=== PATIENT | female | born 1985 ===

== ENCOUNTER 2021-03-02 11:00 | Outpatient (RCR) | payer MEDICAID, SELFPAY | END 2021-03-11 13:19 | disposition home or self-care (01) | LOC: HO.PT 11:00 | PROVIDERS: PCP Family Medicine; Visit Provider Family Medicine | DX: M54.9 Dorsalgia, unspecified (principal) | CPT/HCPCS: 97014; 97110; 97162 ==

== ENCOUNTER 2021-11-24 12:46 | Emergency (ER) | payer MEDICAID, SELFPAY ==
--- NOTE | ~2021-11-24 | XR_ITS ---
EXAMINATION: XR CHEST CLINICAL INFORMATION: Prominent cardiac silhouette and PA COMPARISON: None TECHNIQUE: Lateral view of the chest was obtained. FINDINGS: Heart size probably within normal limits. No pleural effusions. Osseous structures intact. XR/XR chest 1V IMPRESSION: Heart size probably within normal limits.
--- NOTE | ~2021-11-24 | XR_ITS ---
EXAMINATION: XR CHEST CLINICAL INFORMATION: Shortness of breath COMPARISON: None TECHNIQUE: Frontal view of the chest was obtained. FINDINGS: There is no convincing evidence for failure or infiltrate. Lung carter are grossly clear. Cardiac silhouette is prominent as this film is labeled PA study. Correlation recommended. There is no effusion. The hilar regions do not appear pathologically enlarged. XR/XR chest 1V IMPRESSION: Prominent cardiac silhouette on a film which is labeled PA. No failure or infiltrate. No effusion
[2021-11-24 13:08] VITALS: BP 136/83; PULSE 84; RESP 18; TEMP 36.9; O2SAT 99; BMI 36.9
--- NOTE | 2021-11-24 15:27 | ECG_ITS ---
Test Reason : SHORTNESS OF BREATH Blood Pressure : / mmHG Vent. Rate : 071 BPM Atrial Rate : 071 BPM P-R Int : 122 ms QRS Dur : 090 ms QT Int : 400 ms P-R-T Axes : 014 050 011 degrees QTc Int : 434 ms Normal sinus rhythm Normal ECG No previous ECGs available Referred By: Lisa Garcia Electronically Signed By:MARIMAR BERRY
--- NOTE | 2021-11-24 16:10 | ED.GENADULT ---
HPI - General Adult General Chief complaint: General Medical Stated complaint: +covid, sob, sent from [facility] Time Seen by Provider: 11/24/21 14:45 Source: patient Mode of arrival: ambulatory History of Present Illness HPI narrative: 36-year-old female with past medical history COVID-19 + yesterday, presenting to ED sent in by PCP for fever, nonproductive cough, chest tightness/discomfort and SOB. Reports chest discomfort with deep breathing & movement, and SOB worse on exertion. Denies fever, chills, abdominal pain, nausea/vomiting, pedal edema, calf tenderness, history of clots, cigarette smoking Onset (ago): day(s) Related Data Previous Rx's Medication Instructions Recorded acetaminophen 500 mg tablet 500 mg PO Q6H PRN fever or pain 11/24/21 (Tylenol Extra Strength) #14 tabs albuterol sulfate 90 mcg/actuation 2 puff inhalation Q4-6H PRN 11/24/21 aerosol inhaler shortness of breath or wheezing #6.7 grams benzonatate 100 mg capsule 100 mg PO TID PRN cough #14 caps 11/24/21 fluticasone propionate 50 2 spray intranasal DAILY #16 grams 11/24/21 mcg/actuation nasal spray,suspension (Flonase Allergy Relief) Allergies Allergy/AdvReac Type Severity Reaction Status Date / Time latex [LATEX] Allergy Intermediate HIVES Unverified 01/18/21 12:35 pineapple [PINEAPPLE] Allergy Intermediate SWELLING Unverified 01/18/21 12:35 LOBSTER Allergy Intermediate SWELLING Uncoded 01/18/21 12:35 Review of Systems Review of Systems: Constitutional: + Fever, + Chills ENT/Mouth: No Ear Pain, No Nasal Congestion, No Sinus Pain, No Hoarseness, No sore throat, No Rhinorrhea, No Swallowing Difficulty Cardiovascular: + Chest Pain, + SOB Respiratory: + Cough, No Sputum, No Wheezing Gastrointestinal: No Nausea, No Vomiting, No Diarrhea, No Constipation, No Abdominal pain Genitourinary: No Dysuria, No Hematuria, No Urinary Incontinence/retention Musculoskeletal: No joint pain, No Myalgias, No Joint Swelling Skin: No Skin Lesions, No rash Neuro: No Weakness, No Numbness, No Paresthesias Yes all other systems are reviewed and are negative Constitutional: Constitutional: Reports as per [facility] Past Medical History Attestation statement: The following information was validated with the patient. Social History Social History (System 01/18/21 @ 12:35 by Tiara Martínez) Advance Directives: No Advance Directives Information Provided: No Physical Exam ED Vital Signs: Vital Signs - 24 hr 11/24/21 13:08 11/24/21 16:24 Temperature 98.4 F Pulse Rate 84 78 Respiratory Rate 18 18 Blood Pressure 136/83 Pulse Oximetry 99 Oxygen Delivery Method Room Air BMI result Body Mass Index 36.9 Const General: cooperative, healthy appearing and no acute distress Orientation/consciousness: patient oriented x3 Limitations: no limitations HENMT Head: Yes normal to inspection and Yes atraumatic Ears: hearing grossly normal bilaterally General nose exam: Normal external nose present Face and sinus: Yes normal facial exam Eyes General: appearance normal, both eyes and all related structures EOM: EOMs intact bilaterally Neck Neck: Yes normal visual inspection and Yes no meningeal signs Chest Chest palpation & inspection: normal inspection of the chest, no crepitus and tenderness (substernal reproducing subjective complaint) Resp Effort & Inspection: normal respiratory effort and no respiratory distress Auscultation: clear to auscultation bilaterally, no crackles, no rales and no rhonchi Cardio Rate: regular rate Heart sounds: S1 normal heart sound present and S2 normal heart sound present GI Inspection: Yes normal to inspection Palpation (GI): Soft to palpation, nontender, no guarding and not rigid Skin Rashes: no rashes Wounds: no wounds Neuro General: patient oriented x3, tone normal and no meningeal signs Gait exam (Neuro): Normal gait present Extrem General: Yes normal to inspection, Yes no pedal edema and Yes no calf tenderness Course Course Course Narrative: XR chest 1V IMPRESSION: Prominent cardiac silhouette on a film which is labeled PA. No failure or infiltrate. No effusion > will obtain lateral view for further evaluation ?XR chest 1V IMPRESSION: Heart size probably within normal limits. -COVID-19 positive -1657--no leukocytosis. D-dimer WNL. Troponin negative, BNP negative, labs otherwise reassuring. Results discussed with patient including worrisome signs and symptoms and strict return precautions, and when to return to the emergency department. They verbalized understanding and feel safe for discharge at this time. Medical Decision Making MDM Narrative Medical decision making narrative: 36-year-old female with past medical history COVID-19 + yesterday, presenting to ED sent in by PCP for fever, nonproductive cough, chest tightness/discomfort and SOB. On exam vital signs stable, NAD, nontoxic appearing, lungs CTA, CP reproducible on exam: No pedal edema or calf tenderness. Concern for symptoms secondary to known COVID-19 vs viral pneumonia vs PE as patient's symptoms are pleuritic. Lower suspicion for DVT/bacterial infection or CHF. r/o ACS Plan: EKG, labs, CXR, COVID-19 testing, albuterol Medical Records Medical records reviewed: Yes I reviewed the patient's medical records. Lab Data Lab results reviewed: Yes I reviewed the patient's lab results. Result diagrams: 11/24/21 16:09 11/24/21 16:09 Labs: Lab Results 11/24/21 11/24/21 11/24/21 Range/Units 16:01 16:08 16:09 WBC 9.1 (4.8-10.8) X10*3/uL RBC 4.33 (4.20-5.50) X10*6/uL Hgb 12.7 (12.0-16.0) g/dl Hct 38.4 (37.0-47.0) % MCV 88.7 (80.0-98.0) fL MCH 29.3 (27.0-33.0) pg MCHC 33.1 (31.0-35.0) g/dl RDW 12.8 (11.0-16.0) % Plt Count TNP MPV Not Reportable Immature Gran % (Auto) 0.6 H (0.0-0.4) % Neut % (Auto) 77.8 H (45-73) % Lymph % (Auto) 13.8 L (20-40) % [place] % (Auto) 6.5 (2-11) % Eos % (Auto) 1.0 (0-4) % Baso % (Auto) 0.3 (0-2) % Lymph # (Auto) 1.3 (1.2-4.9) X10*3/uL [place] # (Auto) 0.6 (0.1-1.2) X10*3/uL Eos # (Auto) 0.1 (0.0-0.4) X10*3/uL Baso # (Auto) 0.0 (0.0-0.2) X10*3/uL Abs Immat Gran (auto) 0.05 H (0.00-0.03) X10*3/uL Absolute Neuts (auto) 7.1 (2.0-8.3) x10*3/uL Absolute Nucleated RBC 0.000 (0.0-0.012) X10*3/uL Nucleated RBC % (auto) 0.0 (0.0-0.2) /100WBC Smear Tech's Comments VERIFIED D-Dimer High Sensitivty NG/ML Sodium (135-145) mmol/L Potassium (3.3-5.1) mmol/L Chloride (96-108) mmol/L Carbon Dioxide (22-29) mmol/L Anion Gap (12-20) BUN (9-16) mg/dL Creatinine (0.5-1.4) mg/dL Estim Creat Clear Calc Estimated GFR Random Glucose (60-115) mg/dL Calcium (8.4-10.2) mg/dL Troponin I High Sens < 3.5 (<3.5-17.0) ng/L B-Natriuretic Peptide 52 (<100) pg/mL COVID-19 ([facility]) Positive A (Negative) COVID-19 Clin Com See Note 11/24/21 11/24/21 Range/Units 16:09 16:09 WBC (4.8-10.8) X10*3/uL RBC (4.20-5.50) X10*6/uL Hgb (12.0-16.0) g/dl Hct (37.0-47.0) % MCV (80.0-98.0) fL MCH (27.0-33.0) pg MCHC (31.0-35.0) g/dl RDW (11.0-16.0) % Plt Count MPV Immature Gran % (Auto) (0.0-0.4) % Neut % (Auto) (45-73) % Lymph % (Auto) (20-40) % [place] % (Auto) (2-11) % Eos % (Auto) (0-4) % Baso % (Auto) (0-2) % Lymph # (Auto) (1.2-4.9) X10*3/uL [place] # (Auto) (0.1-1.2) X10*3/uL Eos # (Auto) (0.0-0.4) X10*3/uL Baso # (Auto) (0.0-0.2) X10*3/uL Abs Immat Gran (auto) (0.00-0.03) X10*3/uL Absolute Neuts (auto) (2.0-8.3) x10*3/uL Absolute Nucleated RBC (0.0-0.012) X10*3/uL Nucleated RBC % (auto) (0.0-0.2) /100WBC Smear Tech's Comments D-Dimer High Sensitivty 176 NG/ML Sodium 139 (135-145) mmol/L Potassium 4.1 (3.3-5.1) mmol/L Chloride 105 (96-108) mmol/L Carbon Dioxide 24 (22-29) mmol/L Anion Gap 14 (12-20) BUN 4 L (9-16) mg/dL Creatinine 0.62 (0.5-1.4) mg/dL Estim Creat Clear Calc 168.5 Estimated GFR > 60 Random Glucose 81 (60-115) mg/dL Calcium 8.8 (8.4-10.2) mg/dL Troponin I High Sens (<3.5-17.0) ng/L B-Natriuretic Peptide (<100) pg/mL COVID-19 ([facility]) (Negative) COVID-19 Clin Com Discharge Plan Discharge Clinical Impression: COVID-19 Patient Disposition: Home, Self-Care Instructions: COVID-19 (Coronavirus Disease 2019) (ED) Additional Instructions: Your blood work was reassuring today in the emergency department. Chest x-ray was unremarkable. You do have COVID-19. Use albuterol inhaler at home as needed for shortness of breath/wheezing. In addition use Flonase which is a nasal decongestion. Tessalon Perles for cough. At this time you will be okay for discharge. Please self isolate for 5-10 days. Do not expose yourself to others. You may not go to work or school. Please continue to follow cold instructions and wash your hands frequently. You may take Tylenol / Motrin as directed on the bottle for pain or fever. If you have constant or persistent shortness of breath, fever unresolved with medications, chest pain, or your unable to eat or drink please return to the ED CDC Guidelines for home isolation: - Stay away from others - WEAR A MASK if you are sick AND STAY HOME - Cover your mouth and nose with a tissue when you cough or sneeze. Dispose of tissues in a lined trash can and wash your hands immediately with soap and water for at least 20 seconds. If soap and water are not available, clean hands with alcohol-based hand railroad car cleaner that contains at least 60% alcohol. - Clean your hands often with soap and water for at least 20 seconds - Avoid touching your eyes, nose and mouth with unwashed hands - Do not share dishes, drinking glasses, cups, eating utensils, towels, or bedding with other people in your home. After using these items, wash them thoroughly with soap and water or put in the electromechanical equipment assembler. - Clean high-touch surfaces in your isolation area ( sick room and bathroom) every day; let a caregiver clean and disinfect high-touch surfaces in other areas of the home. Clean the area or item with soap and water or another detergent if it is dirty. Then, use a household disinfectant. - Limit contact with pets and animals: If you must care for a pet, wash your hands before and after interacting with them) Prescriptions: New acetaminophen [Tylenol Extra Strength] 500 mg tablet 500 mg PO Q6H PRN (Reason: fever or pain) Qty: 14 0RF benzonatate 100 mg capsule 100 mg PO TID PRN (Reason: cough) Qty: 14 0RF albuterol sulfate 90 mcg/actuation HFA aerosol inhaler 2 puff inhalation Q4-6H PRN (Reason: shortness of breath or wheezing) Qty: 6.7 0RF fluticasone propionate [Flonase Allergy Relief] 50 mcg/actuation spray,suspension 2 spray intranasal DAILY Qty: 16 0RF Rx Instructions: administer into each nostril Referrals: Kelly Boo MD [Primary Care Provider] - Stand Alone Forms: Work/School Release
[2021-11-24 16:16] LABS: Basophils Percent Auto 0.3 % (0-2); Mean Corpuscular Volume 88.7 fL (80.0-98.0); PLT CLUMP 1; SCAN SMEAR FLAG 1
[2021-11-24 16:18] LABS: Eosinophils Absolute Auto 0.1 X10*3/uL (0.0-0.4); Hematocrit 38.4 % (37.0-47.0); Hemoglobin 12.7 g/dl (12.0-16.0); Imm Gran Abs Auto 0.05 X10*3/uL (0.00-0.03); Imm Gran Pct Auto 0.6 % (0.0-0.4); Lymphocytes Absolute Auto 1.3 X10*3/uL (1.2-4.9); Lymphocytes Percent Auto 13.8 % (20-40); MANUAL DIFF FLAG SCAN; Mean Corpuscular HGB Conc 33.1 g/dl (31.0-35.0); Mean Corpuscular Hemoglobin 29.3 pg (27.0-33.0); Monocytes Absolute Auto 0.6 X10*3/uL (0.1-1.2); Monocytes Percent Auto 6.5 % (2-11); Neutrophils Absolute Auto 7.1 x10*3/uL (2.0-8.3); Neutrophils Percent Auto 77.8 % (45-73); Red Blood Count 4.33 X10*6/uL (4.20-5.50); Red Cell Distribution Width 12.8 % (11.0-16.0)
[2021-11-24 16:19] LABS: White Blood Count 9.1 X10*3/uL (4.8-10.8)
[2021-11-24] MEDS: Albuterol/Iprat 2.5/0.5MG 3 ML AMPUL.NEB INHALE (16:23)
[2021-11-24 16:24] VITALS: PULSE 78; RESP 18; O2SAT 98
[2021-11-24 16:24] LABS: D Dimer High Sensitivity 176 NG/ML
[2021-11-24 16:27] LABS: COVID-19 Test Positive (Negative)
[2021-11-24 16:38] LABS: SLIDE REVIEW VERIFIED
[2021-11-24 16:40] LABS: Anion Gap 14 (12-20); Blood Urea Nitrogen 4 mg/dL (9-16); Calcium 8.8 mg/dL (8.4-10.2); Carbon Dioxide 24 mmol/L (22-29); Chloride 105 mmol/L (96-108); Creatinine Clr Calc Pharmacy 168.5; Estimated Glomerular Filt Rate > 60; Glucose Random 81 mg/dL (60-115); Potassium 4.1 mmol/L (3.3-5.1); Sodium 139 mmol/L (135-145)
[2021-11-24 16:46] LABS: B Type Natriuretic Peptide 52 pg/mL (<100); Troponin-I High Sensitivity < 3.5 ng/L (<3.5-17.0)
== END 2021-11-24 17:40 | disposition home or self-care (01) ==
PROVIDERS: Physician Assistant; Emergency Provider Emergency Medicine; PCP Family Medicine
DX: U07.1 COVID-19 (principal); R06.02 Shortness of breath; Z79.899 Other long term (current) drug therapy
CPT/HCPCS: 36415; 71045; 80048; 83880; 84484; 85025; 85379; 87635; 93005; 94640; 99284

== ENCOUNTER 2023-05-23 09:27 | Emergency (ER) | payer MEDICAID, SELFPAY ==
--- NOTE | ~2023-05-23 | XR_ITS ---
EXAMINATION: XR LUMBOSACRAL SPINE CLINICAL INFORMATION: Back pain COMPARISON: 11/13/2006 report TECHNIQUE: Three views of the lumbosacral spine. FINDINGS: Straightening of normal cervical lordosis. Trace scoliosis. 5 lumbar type vertebral bodies are maintained in height. Mild L5-S1 disc base narrowing. Pedicles and SI joints within normal limits. XR/XR lumbar spine 2-3V IMPRESSION: Lumbar lordotic straightening, trace scoliosis and mild L5-S1 disc space narrowing.
[2023-05-23 09:34] VITALS: BP 131/76; PULSE 111; RESP 20; TEMP 37; O2SAT 97; BMI 37.5
--- NOTE | 2023-05-23 10:31 | ED.BACK ---
HPI - Back Pain/Injury General Chief Complaint: Back Pain/Injury Stated Complaint: Pinched nerve Time Seen by Provider: 05/23/23 09:57 Source: patient and RN notes reviewed Mode of arrival: ambulatory Limitations: no limitations History of Present Illness HPI Narrative: This is a 37-year-old female, with no known medical problems, presenting to the emergency department with complaints of low back pain x2 weeks. Patient states that 2 weeks ago while she was getting out of bed she developed left-sided low back pain. She states that she has had intermittent back pain however this worsened yesterday after pushing a box while at work. She states that the pain is constant and shoots down her left leg. She states that the pain is constant however worsens with movement. She has been taking ibuprofen for her pain which has provided her with some relief. Denies any fevers, chills, chest pain, shortness of breath, abdominal pain, vomiting or diarrhea. No urinary symptoms. No saddle anesthesia. No urinary or bowel incontinence or retention. No other complaints or concerns at this time. MD elicited complaint: back pain and back injury Onset (ago): week(s) Timing: constant and progressively worsening Severity: moderate Quality: aching Location: lumbar spine Radiation: left leg below the knee Exacerbating factors: movement and walking Relieving factors: immobilization Associated symptoms: denies other symptoms Treatments prior to arrival: NSAIDS Related Data Previous Rx's Medication Instructions Recorded acetaminophen 500 mg tablet 500 mg PO Q6H PRN fever or pain 11/24/21 (Tylenol Extra Strength) #14 tabs albuterol sulfate 90 mcg/actuation 2 puff inhalation Q4-6H PRN 11/24/21 aerosol inhaler shortness of breath or wheezing #6.7 grams benzonatate 100 mg capsule 100 mg PO TID PRN cough #14 caps 11/24/21 fluticasone propionate 50 2 spray intranasal DAILY #16 grams 11/24/21 mcg/actuation nasal spray,suspension (Flonase Allergy Relief) Allergies Allergy/AdvReac Type Severity Reaction Status Date / Time latex [LATEX] Allergy Intermediate HIVES Verified 05/23/23 09:37 pineapple [PINEAPPLE] Allergy Intermediate SWELLING Verified 05/23/23 09:37 LOBSTER Allergy Intermediate SWELLING Uncoded 01/18/21 12:35 Review of Systems Review of Systems: Yes all other systems are reviewed and are negative Constitutional: Constitutional: Reports as per [facility] Social History Social History (System 01/18/21 @ 12:35 by Tiara Martínez) Advance Directives: No Advance Directives Information Provided: No Physical Exam Vital Signs: Vital Signs: Last Vital Signs Temp 98.6 F 05/23/23 09:34 Pulse 83 05/23/23 12:12 Resp 16 05/23/23 12:12 BP 128/95 H 05/23/23 12:12 Pulse Ox 100 05/23/23 12:12 O2 Del Method Room Air 05/23/23 12:12 BMI result Body Mass Index 37.5 Const: General: cooperative, comfortable and no acute distress Orientation/consciousness: patient oriented x3 Limitations: no limitations HEENT: Head: Yes normal to inspection, Yes normocephalic and Yes atraumatic Ears: hearing grossly normal bilaterally General nose exam: Normal external nose present Face and sinus: Yes normal facial exam Mouth: Normal oral and palatal mucosa present, oropharynx normal and moist mucous membranes Throat: Yes posterior oropharynx normal Eyes: General: appearance normal, both eyes and all related structures Eyelids: Yes eyelids normal Conjunctivae: conjunctivae normal Sclerae: sclerae normal Pupils: Equal, round and reactive pupils present EOM: EOMs intact bilaterally Neck: Neck: Yes normal visual inspection, Yes full ROM and Yes no lymphadenopathy Lymphatic: no lymphadenopathy noted Chest: Chest palpation & inspection: normal inspection of the chest Resp: Effort & Inspection: normal respiratory effort and able to speak in complete sentences Auscultation: clear to auscultation bilaterally, no crackles, no rales, no rhonchi and no wheezes Cardio: Rate: regular rate Rhythm: regular rhythm Heart sounds: S1 normal heart sound present and S2 normal heart sound present GI: Other: Abdomen is soft, nontender, nondistended Inspection: Yes normal to inspection Back/Spine/Pelvis: Other: Tenderness palpation along the lumbar midline spine and paraspinous muscles. Positive straight leg raise bilaterally. Skin: General skin exam: no rashes or lesions noted Trauma: no lacerations or abrasions Wounds: no wounds Neuro: General: patient oriented x3 and moves all extremities Cranial nerves: Yes Equal, round and reactive pupils present Extrem: General: Yes normal to inspection Right upper extremity: normal to inspection Left upper extremity: normal to inspection Right lower extremity: normal to inspection Left lower extremity: normal to inspection Course Reevaluation(s) Reevaluation #1: X-ray was reviewed, revealing lumbar straightening, trace scoliosis and mild L5-S1 disc space narrowing. Discussed findings with patient. Patient has had mild relief with Valium. Will discharge patient on muscle relaxants, lidocaine patches and prednisone. Given return precautions. Also advised to follow-up with primary care for physical therapy/MRI. She does not have any red flag back symptoms therefore she is stable for discharge. A friend is driving her home. Stable for discharge Time: 12:41 Medications Administered Discontinued Medications Generic Name Dose Route Start Last Admin Trade Name Freq PRN Reason Stop Dose Admin Acetaminophen 975 mg 05/23/23 10:30 05/23/23 11:00 Acetaminophen 325 Mg Tablet PO 05/23/23 10:31 975 mg ONCE ONE Administration Diazepam 2 mg 05/23/23 10:30 05/23/23 11:00 Diazepam 2 Mg Tablet PO 05/23/23 10:31 2 mg ONCE ONE Administration Medical Decision Making Medical Decision Making MDM Narrative: This is a 37-year-old female, with no known medical problems, presenting to the emergency department with complaints of low back pain x2 weeks, worsening since yesterday. On arrival, patient mildly tachycardic at 1:11 a.m., likely secondary to pain. She is nontoxic appearing, afebrile. She is tenderness palpation along the lumbar midline spine and paraspinous muscles with a positive straight leg raise. This patient presents with back pain most consistent with lumbar radiculopathy. Differential diagnoses includes lumbago versus musculoskeletal spasm / strain versus sciatica.No back pain red flags on history or physical. Presentation not consistent with malignancy (lack of history of malignancy, lack of B symptoms), cauda equina (no bowel or urinary incontinence/retention, no saddle anesthesia, no distal weakness), pyelonephritis (afebrile, no CVAT, no urinary symptoms). Plan: X-ray, Tylenol, Valium, and reassessment Differential Diagnosis Differential Diagnoses: The differential diagnosis associated with the presentation includes See above Radiology Impression Discussion of test interpretation with radiology: I have reviewed the radiologist's reading. Radiologist Impression: EXAMINATION: XR LUMBOSACRAL SPINE CLINICAL INFORMATION: Back pain COMPARISON: 11/13/2006 report TECHNIQUE: Three views of the lumbosacral spine. FINDINGS: Straightening of normal cervical lordosis. Trace scoliosis. 5 lumbar type vertebral bodies are maintained in height. Mild L5-S1 disc base narrowing. Pedicles and SI joints within normal limits. XR/XR lumbar spine 2-3V IMPRESSION: Lumbar lordotic straightening, trace scoliosis and mild L5-S1 disc space narrowing. Dictated By: Shakira Garcia MD Signed By: <Electronically signed by Shakira Garcia MD in OV> Discharge Plan Discharge Clinical Impression: Lumbar radiculopathy Patient Disposition: Home, Self-Care Instructions: Acute Low Back Pain (ED), Lumbar Radiculopathy (ED), Lower Back Exercises (ED) Additional Instructions: Your seen in the emergency department due to back pain. Please take prescribed prednisone, muscle relaxant, and Tylenol. Avoid taking any NSAIDs such as ibuprofen or naproxen, while you are taking prednisone. Gentle stretching, massage, heat or ice can also help with your symptoms. Follow-up with your primary care physician regarding this visit. If any new or worsening symptoms occur including but not limited to chest pain, shortness of breath, worsening back pain, abdominal pain, nausea, vomiting or diarrhea, please return for re-evaluation. Prescriptions: No Action acetaminophen [Tylenol Extra Strength] 500 mg tablet 500 mg PO Q6H PRN (Reason: fever or pain) Qty: 14 0RF benzonatate 100 mg capsule 100 mg PO TID PRN (Reason: cough) Qty: 14 0RF albuterol sulfate 90 mcg/actuation HFA aerosol inhaler 2 puff inhalation Q4-6H PRN (Reason: shortness of breath or wheezing) Qty: 6.7 0RF fluticasone propionate [Flonase Allergy Relief] 50 mcg/actuation spray,suspension 2 spray intranasal DAILY Qty: 16 0RF Rx Instructions: administer into each nostril Stand Alone Forms: Work/School Release
[2023-05-23] MEDS: Acetaminophen 325 MG TABLET 975 MG PO (11:00)
[2023-05-23] MEDS: diazePAM 2 MG TABLET PO (11:00)
[2023-05-23 12:12] VITALS: BP 128/95; PULSE 83; RESP 16; O2SAT 100
[2023-05-23 13:10] VITALS: BP 129/74; PULSE 79; RESP 17; TEMP 36.8
== END 2023-05-23 13:11 | disposition home or self-care (01) ==
PROVIDERS: Emergency Provider Emergency Medicine; PCP Family Medicine
DX: M54.16 Radiculopathy, lumbar region (principal)
CPT/HCPCS: 72100; 99283

== ENCOUNTER 2023-07-03 08:00 | Outpatient (RCR) | payer MEDICAID, SELFPAY | END 2023-08-01 13:19 | disposition home or self-care (01) | LOC: HO.PT 08:00 | PROVIDERS: PCP Family Medicine; Visit Provider Family Medicine | DX: M54.42 Lumbago with sciatica, left side (principal) | CPT/HCPCS: 97014; 97110; 97161 ==

== ENCOUNTER 2023-07-07 11:48 | Outpatient (REF) | payer MEDICAID, SELFPAY ==
[2023-07-07 14:53] LABS: MANUAL DIFF FLAG NO
[2023-07-07 14:57] LABS: Basophils Percent Auto 0.3 % (0-2); Eosinophils Absolute Auto 0.1 X10*3/uL (0.0-0.4); Eosinophils Percent Auto 1.4 % (0-4); Hematocrit 40.2 % (37.0-47.0); Hemoglobin 13.5 g/dl (12.0-16.0); Imm Gran Abs Auto 0.04 X10*3/uL (0.00-0.03); Imm Gran Pct Auto 0.5 % (0.0-0.4); Lymphocytes Absolute Auto 2.1 X10*3/uL (1.2-4.9); Lymphocytes Percent Auto 23.5 % (20-40); Mean Corpuscular HGB Conc 33.6 g/dl (31.0-35.0); Mean Corpuscular Hemoglobin 29.8 pg (27.0-33.0); Mean Corpuscular Volume 88.7 fL (80.0-98.0); Mean Platelet Volume 9.8 fL (9.4-12.3); Monocytes Absolute Auto 0.4 X10*3/uL (0.1-1.2); Monocytes Percent Auto 4.8 % (2-11); Neutrophils Absolute Auto 6.1 x10*3/uL (2.0-8.3); Neutrophils Percent Auto 69.5 % (45-73); Platelet Count 315 X10*3/uL (160-400); Red Blood Count 4.53 X10*6/uL (4.20-5.50); Red Cell Distribution Width 13.4 % (11.0-16.0); White Blood Count 8.8 X10*3/uL (4.8-10.8)
[2023-07-07 15:04] LABS: Estimated Average Glucose 117 mg/dL; Hemoglobin A1c % 5.7 % (<6.0)
[2023-07-07 15:23] LABS: Alanine Aminotransferase 25 U/L (0-31); Albumin Level 4.4 g/dL (3.5-5.0); Alkaline Phosphatase 68 U/L (39-117); Anion Gap 12 (12-20); Aspartate Amino Transferase 18 U/L (5-31); Bilirubin Total 0.4 mg/dL (0.0-1.0); Blood Urea Nitrogen 13 mg/dL (9-16); Calcium 9.7 mg/dL (8.4-10.2); Carbon Dioxide 25 mmol/L (22-29); Chloride 105 mmol/L (96-108); Cholesterol 225 mg/dL (<200); Estimated Glomerular Filt Rate > 60; Glucose Random 105 mg/dL (60-115); HDL Cholesterol 66 mg/dL (>40); LDL Cholesterol Calculated 137 mg/dL (<100); Sodium 138 mmol/L (135-145); Total Protein 8.1 g/dL (6.5-8.0); Triglycerides 113 mg/dL (<150)
[2023-07-07 15:30] LABS: TSH reflex Free T4 0.66 uIU/mL (0.32-4.0)
== END 2023-07-07 11:49 | disposition home or self-care (01) ==
LOC: HO.CHCLDS 11:48
PROVIDERS: Visit Provider Internal Medicine
DX: E66.09 Other obesity due to excess calories (principal); Z68.38 Body mass index [BMI] 38.0-38.9, adult
CPT/HCPCS: 36415; 80053; 80061; 83036; 84443; 85025

== ENCOUNTER 2023-07-10 14:15 | Outpatient (REF) | payer MEDICAID, SELFPAY | END 2023-07-10 14:16 | disposition home or self-care (01) | LOC: HO.MRI 14:15 | PROVIDERS: PCP Family Medicine; Visit Provider Internal Medicine | DX: Z13.89 Encounter for screening for other disorder (principal) ==

== ENCOUNTER 2024-06-06 09:54 | Outpatient (REF) | payer MEDICAID, SELFPAY ==
[2024-06-06 11:37] LABS: MANUAL DIFF FLAG NO
[2024-06-06 11:48] LABS: Basophils Percent Auto 0.3 % (0-2); Eosinophils Absolute Auto 0.2 X10*3/uL (0.0-0.4); Eosinophils Percent Auto 1.4 % (0-4); Hematocrit 40.4 % (37.0-47.0); Imm Gran Abs Auto 0.08 X10*3/uL (0.00-0.03); Imm Gran Pct Auto 0.7 % (0.0-0.4); Lymphocytes Percent Auto 25.8 % (20-40); Mean Corpuscular HGB Conc 32.2 g/dl (31.0-35.0); Mean Corpuscular Hemoglobin 28.9 pg (27.0-33.0); Mean Corpuscular Volume 89.8 fL (80.0-98.0); Mean Platelet Volume 9.9 fL (9.4-12.3); Monocytes Absolute Auto 0.6 X10*3/uL (0.1-1.2); Monocytes Percent Auto 5.4 % (2-11); Neutrophils Absolute Auto 7.7 x10*3/uL (2.0-8.3); Neutrophils Percent Auto 66.4 % (45-73); Platelet Count 311 X10*3/uL (160-400); Red Cell Distribution Width 13.2 % (11.0-16.0); White Blood Count 11.5 X10*3/uL (4.8-10.8)
--- OUTSIDE RECORDS SUMMARY | 2024-06-06 12:08 | XMS_ITS | Encounter Summary ---
Author Organization [employer] Address [address] [place] [address] Care Team Providers Care Boiler Coverer Name Role Phone Joel Ji MD Primary Care Prov ider Encounter Details Date Type Department Care Team ([facility] st Contact Info) Description 05/20/2024 Telephone [facility] [address], [place] [phone] Joel Ji MD [address] [place] [address] Social History Tobacco Use Types Packs/Day Years Used Date Smoking Tobacco: Never Smokeless Tobacco: Never Alcohol Use Standard Drinks/Week Comments Not Currently 0 (1 standard drink = 0.6 oz pur e alcohol) Depression Answer Date Recorded Patient Health Questionnaire-9 Score 15 07/07/2023 Patient Health Questionnaire-9 Score 15 07/07/2023 Last PHQ-9: Questionnaire Data Not on file 0 07/07/2023 Housing Stability Answer Date Recorded What is your housing situation today? I have [employer] 07/03/[address] you li ve. Do you have problems with any of the following? None of the above 07/03/2023 Food Insecurity Answer Date Recorded Within the past 12 months, y ou worried that your food would run out before you got money to buy more: Never True 07/03/2023 Within the past 12 months,th e food you bought just didn't last and you didn't have enough money to get more: Never True 10/2023 Transportation Answer Date Recorded In the past 12 months, has l ack of transportation kept you from medical appts, meetings, work or from getting things needed for daily living? No 07/03/2023 Utilities Answer Date Recorded In the past 12 months, has t he electric, gas, oil or water company threatened to shut off services in your home? No 07/03/2023 Depression Answer Date Recorded Patient Health Questionnaire-2 Score 6 07/07/2023 Comments Unknown Sex and Gender Information Value Date Recorded Sex Assigned at Female 01/24/2022 10:18 AM EDT Legal Sex Female 10:18 AM EDT Gender Identity Female 01/24/2022 10:18 AM EDT Sexual Orientation Straight 01/24/2022 10 :18 AM EDT documented as of this encounter Miscellaneous Notes * Telephone Encounter - Shakira Yeager MA - 05/20/2024 9:59 AM EST Called pt to schedule tele appt with Dr. Arora for fu fibromyalgia. Pt didn't answer, lvm to call office back. documented in this encounter Plan of Treatment Not on file documented as of this encounter Visit Diagnoses Not on filedocumented in this encounter Additional Health Concerns Assessment Noted Time PHQ-9 Depression Total Score: 15 024 11:14 AM EDT documented as of this encounter Care Teams Boiler Coverer Relationship Specialty Start Date End Date Joel Ji MD [address] [place] [id number] PCP - General Internal Medicine 06/29/23 documented as of this encounter
--- OUTSIDE RECORDS SUMMARY | 2024-06-06 12:08 | XMS_ITS | Encounter Summary ---
Author Organization [email or web address] Address [address] [facility] [address] [place] [address] Care Team Providers Care Adhesive Bonding Machine Operator Name Role Phone Joel Ji MD Primary Care Prov ider Reason for Visit * Reason Comments Dizziness Headache Encounter Details Date Type Department Care Team ([facility] Contact Info) Description 06/06/2024 9:20 AM EDT Office Visit [facility] [address] [place] [phone] Ang Orta MD [address] [place] [phone] Dizziness Social History Tobacco Use Types Packs/Day Years [...] AM EDT documented as of this encounter Last Filed Vital Signs Vital Sign Reading Time Taken Comments Blood Pressure 128/79 06/06/2024 9:10 AM EDT Pulse 87 06/06/2024 9:10 AM EDT Temperature 36.7 ??C (98.1 ??F) 06/06/2024 9:10 AM ED T Respiratory Rate 18 06/06/2024 9:10 AM EDT Oxygen Saturation 99% 06/06/2024 9:10 AM EDT Inhaled Oxygen Concentration - - Weight - - Height - - Body Mass Index - - documented in this encounter Progress Notes * Ang Orta MD - 06/06/2024 9:20 AM EDT Subjective History was provided by the patient. Nathaly Grove is a 38 y.o. female who presents for evaluation of OLGUIN and dizziness for 3 days. Was at work when she felt dizzy, chills, weakness, and blurry vision. This episode resolved spontaneously, but still with dizziness and OLGUIN (mostly occipital). 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 Denies chest pain, palpitations, or SOB. Denies current visual disturbances. Denies chance of (s/p hysterectomy in 2011). Denies associated N/V/D. Denies F/C. Objective Vitals: 06/06/24 0910 BP: 128/79 BP Location: Left arm Patient Position: Sitting BP Cuff Size: Large adult Pulse: 87 Resp: 18 Temp: 98.1 ??F (36.7 ??C) TempSrc: Oral SpO2: 99% Physical Exam Vitals reviewed. Constitutional: Appearance: Normal appearance. She is normal weight. HENT: Head: Normocephalic and atraumatic. Right Ear: Tympanic membrane, ear canal and external ear normal. Left Ear: Tympanic membrane, ear canal and external ear normal. Nose: Nose normal. No congestion or rhinorrhea. Mouth/Throat: Mouth: Mucous membranes are moist. Pharynx: Oropharynx is clear. No oropharyngeal exudate or posterior oropharyngeal erythema. Eyes: Extraocular Movements: Extraocular movements intact. Conjunctiva/sclera: Conjunctivae normal. Pupils: Pupils are equal, round, and reactive to light. Comments: No nystagmus Cardiovascular: Rate and Rhythm: Normal rate and regular rhythm. Heart sounds: Normal heart sounds. Pulmonary: Effort: Pulmonary effort is normal. Breath sounds: Normal breath sounds. Abdominal: General: Abdomen is flat. There is no distension. Palpations: Abdomen is soft. Tenderness: There is no abdominal tenderness. Musculoskeletal: General: Normal range of motion. Cervical back: Normal range of motion and neck supple. Lymphadenopathy: Cervical: No cervical adenopathy. Skin: General: Skin is warm and dry. Neurological: General: No focal deficit present. Mental Status: She is alert and oriented to person, place, and time. Mental status is at baseline. Cranial Nerves: No cranial nerve deficit. Sensory: No sensory deficit. Motor: No weakness. Coordination: Coordination normal. Gait: Gait normal. Deep Tendon Reflexes: Reflexes normal. Psychiatric: Mood and Affect: Mood normal. Behavior: Behavior normal. Thought Content: Thought content normal. Judgment: Judgment normal. Office Visit on 06/06/2024 Component Date Value Ref Range Status Glucose Blood, POC 06/06/2024 109 60 - 200 mg/dL Final Rapid COVID Ag 06/06/2024 Negative Final Influenza A 06/06/2024 Negative Negative, Indeterminate Final Influenza B 06/06/2024 Negative Negative, Indeterminate Final White Blood Count 06/06/2024 11.5 (H) 4.8 - 10.8 X10*3/uL Final Red Blood Count 06/06/2024 4.50 4.20 - 5.50 X10*6/uL Final Hemoglobin 06/06/2024 13.0 12.0 - 16.0 g/dl Final Hematocrit 06/06/2024 40.4 37.0 - 47.0 % Final Mean Corpuscular Volume 06/06/2024 89.8 80.0 - 98.0 fL Final Mean Corpuscular Hemoglobin 06/06/2024 28.9 27.0 - 33.0 pg Final Mean Corpuscular HGB Conc 06/06/2024 32.2 31.0 - 35.0 g/dl Final Red Cell Distribution Width 06/06/2024 13.2 11.0 - 16.0 % Final Platelet Count 06/06/2024 311 160 - 400 X10*3/uL Final Mean Platelet Volume 06/06/2024 9.9 9.4 - 12.3 fL Final Neutrophils Percent Auto 06/06/2024 66.4 45 - 73 % Final Imm Gran Pct Auto 06/06/2024 0.7 (H) 0.0 - 0.4 % Final Lymphocytes Percent Auto 06/06/2024 25.8 20 - 40 % Final Monocytes Percent Auto 06/06/2024 5.4 2 - 11 % Final Eosinophils Percent Auto 06/06/2024 1.4 0 - 4 % Final Basophils Percent Auto 06/06/2024 0.3 0 - 2 % Final NRBC Pct Auto 06/06/2024 0.0 0.0 - 0.2 /100WBC Final Neutrophils Absolute Auto 06/06/2024 7.7 2.0 - 8.3 x10*3/uL Final Imm Gran Abs Auto 06/06/2024 0.08 (H) 0.00 - 0.03 X10*3/uL Final Lymphocytes Absolute Auto 06/06/2024 3.0 1.2 - 4.9 X10*3/uL Final Monocytes Absolute Auto 06/06/2024 0.6 0.1 - 1.2 X10*3/uL Final Eosinophils Absolute Auto 06/06/2024 0.2 0.0 - 0.4 X10*3/uL Final Basophils Absolute Auto 06/06/2024 0.0 0.0 - 0.2 X10*3/uL Final NRBC Abs Auto 06/06/2024 0.000 0.0 - 0.012 X10*3/uL Final Nathaly was seen today for dizziness and headache. Diagnoses and all orders for this visit: Dizziness - POCT Glucose - POCT Rapid Covid-19 BinaxNOW - POCT Rapid Influenza A GOVEA ID NOW - POCT Rapid Influenza B GOVEA ID NOW - CBC auto differential; Future - TSH W/Reflex to FT4; Future - Basic Metabolic Panel; Future - Vitamin D, 25-Hydroxy, Total, Immunoassay; Future Patient [facility] to [facility] due to 3-day duration of OLGUIN and dizziness Initially also had chills, weakness, and blurry vision, but these symptoms have resolved OLGUIN is mostly occipital; without focal neurologic deficit Non-focal, normal neurologic exam with intact CN 2-12 Davion-Hallpike negative without nystagmus POC BS within normal Rapid COVID-19 & Influenza A/B negative today Will check CBC, TSH, BMP, and Vitamin D Supportive care with ample hydration and rest discussed Recommend OTC Ibuprofen (has Rx at home) Advised to contact the clinic if no improvement of symptoms Indications for UC/ER use reviewed documented in this encounter Plan of Treatment Scheduled Orders Name Type Priority Associated Diagnoses Orde r Schedule TSH W/Reflex to FT4 Lab Routine Dizziness Expected: 06/06/2024 (Approximate), Expires: 06/06/2025 Basic Metabolic Panel Lab Routine Dizziness Expected: 06/06/2024 (Approximate), Expires: 06/06/2025 Vitamin D, 25-Hydroxy, Total, Immunoassay Lab Routine Dizziness Expected: 06/06/2024 (Approximate), Expires: 06/06/2025 documented as of this encounter Procedures Procedure Name Priority Date/Time Associated Diagnosis Comments CBC WITH AUTO DIFFERENTIAL Routine 06/06/2024 9:56 AM EDT Dizziness POCT RAPID COVID ANTIGEN Routine 06/06/2024 9:34 AM EDT Dizziness POCT INFLUENZA A (ID NOW RAPID MOLECULAR) Routine 06/06/2024 9:33 AM EDT Dizziness POCT INFLUENZA B (ID NOW RAPID MOLECULAR) Routine 06/06/2024 9:32 AM EDT Dizziness POCT GLUCOSE Routine 06/06/2024 9:32 AM EDT Dizziness documented in this encounter Results * (ABNORMAL) CBC auto differential (06/06/2024 9:56 AM EDT) White Blood Count 11.5(H) 4.8 - 10.8 X10*3/uL [facility] Red Blood Count 4.50 4.20 - 5.50 X10*6/uL [facility] Hemoglobin 13.0 12.0 - 16.0 g/dl [facility] Hematocrit 40.4 37.0 - 47.0 % [facility] Mean Corpuscular Volume 89.8 80.0 - 98.0 fL [facility] Mean Corpuscular Hemoglobin 28.9 27.0 - 33.0 pg [facility] Mean Corpuscular HGB Conc 32.2 31.0 - 35.0 g/dl [facility] Red Cell Distribution Width 13.2 11.0 - 16.0 % [facility] Platelet Count 311 160 - 400 X10*3/uL [facility] Mean Platelet Volume 9.9 9.4 - 12.3 fL [facility] Neutrophils Percent Auto 66.4 45 - 73 % [facility] Imm Gran Pct Auto 0.7(H) 0.0 - 0.4 % [facility] Lymphocytes Percent Auto 25.8 20 - 40 % [facility] Monocytes Percent Auto 5.4 2 - 11 % [facility] Eosinophils Percent Auto 1.4 0 - 4 % [facility] Basophils Percent Auto 0.3 0 - 2 % [facility] NRBC Pct Auto 0.0 0.0 - 0.2 /100WBC [facility] Neutrophils Absolute Auto 7.7 2.0 - 8.3 x10*3/uL [facility] Imm Gran Abs Auto 0.08(H) 0.00 - 0.03 X10*3/uL [facility] Lymphocytes Absolute Auto 3.0 1.2 - 4.9 X10*3/uL [facility] Monocytes Absolute Auto 0.6 0.1 - 1.2 X10*3/uL [facility] Eosinophils Absolute Auto 0.2 0.0 - 0.4 X10*3/uL [facility] Basophils Absolute Auto 0.0 0.0 - 0.2 X10*3/uL [facility] NRBC Abs Auto 0.000 0.0 - 0.012 X10*3/uL [facility] Blood Venous blood specimen / Unknown 06/06/2024 9:56 AM EDT 06/06/2024 11:35 AM EDT us Ang Orta MD LAB BLOOD ORDERABLES Final Resul t Performing Organization Address [facility] Co de Phone Number [facility] [address] [place] [phone] * POCT Rapid Covid-19 BinaxNOW (06/06/2024 9:34 AM EDT) [facility] Rapid COVID Ag Negative Nares 06/06/2024 9:34 AM EDT us Ang Orta MD POINT OF CARE TEST ENTER/EDIT OR DERABLES Final Result * POCT Rapid Influenza A GOVEA ID NOW (06/06/2024 9:33 AM EDT) [facility] Influenza A Negative Negative, Indeterminate [facility] Swab 06/06/2024 9:33 AM EDT us Ang Orta MD POINT OF CARE TEST ENTER/EDIT OR DERABLES Final Result Performing Organization Address [facility] Co de Phone Number [facility] [address] [place] [phone] * POCT Rapid Influenza B GOVEA ID NOW (06/06/2024 9:32 AM EDT) [facility] Influenza B Negative Negative, Indeterminate [facility] Swab 06/06/2024 9:32 AM EDT us Ang Orta MD POINT OF CARE TEST ENTER/EDIT OR DERABLES Final Result [facility] [address] [place] [address] [phone] * POCT Glucose (06/06/2024 9:32 AM EDT) Glucose Blood, POC 109 60 - 200 mg/dL Blood Capillary blood specimen / Unknown 06/06/2024 9:32 AM EDT Ang Orta MD POINT OF CARE TEST ENTER/EDIT OR DERABLES Final Result documented in this encounter Visit Diagnoses Diagnosis Dizziness Dizziness and giddiness documented in this encounter Additional Health Concerns Assessment Noted Time PHQ-9 Depression Total Score: 15 024 11:14 AM EDT documented as of this encounter Care Teams Adhesive Bonding Machine Operator Relationship Specialty Start Date End Date Joel Ji MD [address] [place] [phone] PCP - General Internal Medicine 06/29/23 documented as of this encounter
--- OUTSIDE RECORDS SUMMARY | 2024-06-06 12:08 | XMS_ITS | Encounter Summary ---
Author Organization [employer] Address [address] [facility] [address] [place] [address] Care Team Providers Care Furniture Crater Name Role Phone Joel Ji MD Primary Care Prov ider Reason for Visit * Reason Onset Date Comments Nurse Triage 06/06/2024 Encounter Details Date Type Department Care Team ([facility] st Contact Info) Description 06/06/[address] 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 She reports at work on Monday she suddenly felt dizzy, cold, weak, and had blurry vision. This episode resolved spontaneously and she did not lose consciousness. She has had intermittent dizziness and headaches since Monday prompting her to come to clinic today. Denies chest pain, palpitations, SOB, visual disturbances. Denies chance of (s/p hysterectomy in 2011). Reports she got a home BP machine and last night it read 131/100. This morning, it was 142/100. Currently her BP is 128/79. Vitals: BP 128/79 HR 87 RR 18 SpO2 99% on room air Temp 98.1 (oral) In Office Testing: Influenza A/B negative COVID negative Glucose 109 Plan: Report to Dr. Orta Patient to await provider evaluation. Patient verbalizes understanding and agreement with plan of care at this time. Kena Mittal RN documented in this encounter Plan of Treatment Not on file documented as of this encounter Visit Diagnoses Not on filedocumented in this encounter Additional Health Concerns Assessment Noted Time PHQ-9 Depression Total Score: 15 024 11:14 AM EDT documented as of this encounter Care Teams Furniture Crater Relationship Specialty Start Date End Date AroraJoel López MD [address] [place] [phone] PCP - General Internal Medicine 06/29/23 documented as of this encounter
--- OUTSIDE RECORDS SUMMARY | 2024-06-06 12:08 | XMS_ITS | Clinical Summary ---
Author Organization [employer] Address [address] [facility] [address] [place] [address] Care Team Providers Care Kettle Operator Name Role Phone Joel Ji MD Primary Care Prov ider Allergies Active Allergy Reactions Criticality Noted Date Comments Latex 07/08/2014 Other reaction(s): Unknown Pineapple Extract 01/07/2021 Other reaction(s): Hives Shellfish Allergy Anaphylaxis High 08/19/2022 Medications * This document contains information received from the source organization and may not represent a complete record from that organization. EPINEPHrine (EpiPen 2-Trey) 0.3 MG/0.3ML injection syringeIndicati ons:Shellfish allergy Inject 0.3 mL (0.3 mg) as directed 1 (one) time for 1 dose. 2 each 08/19/2022 Active cyclobenzaprine (Flexeril) 10 MG tablet Take 1 tablet (10 mg) by mouth 3 times daily for 10 days. 30 tablet 06/05/2023 Active Active Problems Problem Noted Date Diagnosed Date Chronic bilateral low back pain with left-sided sciatica 07/07/2023 Assessment & Plan (07/07/2023 11:51 AM EDT): Patient undergoing physical therapy, taking ibuprofen as needed, pending MRI Encounter for medical examination to establish c are 07/07/2023 Assessment & Plan (07/07/2023 11:55 AM EDT): Patient has hx of fibromyalgia anxiety/MDD, recently seen for back pain. She is receving physical therapy, pending MRI. Menarche was at 9yr, she underwent hysterectomy procedure on 2011 due to fibroids. She is G5A2P3 all vaginal deliveries. Will order routine labs. Menorrhagia 08/19/2022 Uterine fibroid 08/19/2022 Overview (08/19/2022): prolapsed Fibromyalgia 02/18/2015 Iron deficiency anemia 08/25/2014 Overview (08/19/2022): From heavy periods. Received transfusions and IV iron. Hysterectomy 10/08 Encounters Date Type Department Care Team Description 06/06/2024 9:20 AM EDT Office Visit [facility] [address] [place] [address] [phone] Ang Orta MD Dizziness 06/06/2024 Telephone [facility] [address], [place] [phone] Ang Orta MD Nurse Triage 05/20/2024 Telephone [facility] [address] [place], [place] [phone] AroraJoel López MD from Last 3 Months Immunizations Name Administration Dates Next Due Influenza injectable quadrivalent preservative f ree 01/07/2021 Influenza, IIV3, injectable 01/12/2015 Tdap 01/12/2015 Family History Medical History Relation Name Comments Diabetes Father Heart failure Father Breast cancer Mother alive Diabetes Mother htn Mother Relation Name Status Comments Father Mother Social History Tobacco Use Types Packs/Day Years Used Date Smoking Tobacco: Never Smokeless Tobacco: Never Tobacco Cessation:Counseling Given: Not Answered Alcohol Use Standard Drinks/Week Comments Not Currently [...] the past 12 months, has t he [employer], gas, oil or water company threatened to shut off services in your home? No 07/03/2023 Depression Answer Date Recorded Patient Health Questionnaire-2 Score 6 07/07/2023 Comments Unknown Sex and Gender Information Value Date Recorded Sex Assigned at Female 01/24/2022 10:18 AM EDT Legal Sex Female 10:18 AM EDT Gender Identity Female 01/24/2022 10:18 AM EDT Sexual Orientation Straight 01/24/2022 10 :18 AM EDT Last Filed Vital Signs Vital Sign Reading Time Taken Comments Blood Pressure 128/79 06/06/2024 9:10 AM EDT Pulse 87 06/06/2024 9:10 AM EDT Temperature 36.7 ??C (98.1 ??F) 06/06/2024 9:10 AM ED T Respiratory Rate 18 06/06/2024 9:10 AM EDT Oxygen Saturation 99% 06/06/2024 9:10 AM EDT Inhaled Oxygen Concentration - - Weight 119 kg (262 lb) 07/07/2023 11:14 AM EDT Height 175.3 cm (5' 9 ) 07/07/2023 11:14 AM EDT Body Mass Index 38.69 07/07/2023 11:14 AM EDT Plan of Treatment Health Maintenance Due Date Last Done Comments Alcohol/Substance Use Screening 1997 Family Planning (PISQ) 2000 Hepatitis B Vaccines (1 of 3 - 19+ 3-dose series) 2004 Pap Smear 2006 Cervical Cancer Screening 10/19/2015 HPV/Cotest 10/19/2015 COVID-19 Vaccine ( - 2023-2 5 season) 2023 Influenza Vaccine (#1) 2023 , 01/12/2015 Depression Monitoring (PHQ-9) 01/06/2024, 07/07/2023 SDOH Screening 07/02/2024 07/03/2023 Depression Screening 07/06/2024 07/07/2023, 07/07/2023 Diabetes: Hemoglobin A1C 07/06/2024 024, 01/07/2021 Tobacco Screening 07/06/2024 07/07/2023 DTaP/Tdap/Td Vaccines (3 - T d or Tdap) 01/12/2025 01/12/2015, 06/03/2010 Lipid Panel 07/06/2028 07/07/2023, 01/07/2021 Zoster Vaccines (1 of 2) 10/19/2035 RSV Patients and Patients Aged 60 years or older (1 - 1-dose 75+ series) 2060 HIV Screening Completed 01/07/2021 Hepatitis C Screening Completed 01/07/2021 HIB Vaccines Aged Out No longer eligi ble based on patient's age to complete this topic HPV Vaccines Aged Out No longer eligi ble based on patient's age to complete this topic Hepatitis A Vaccines Aged Out No long er eligible based on patient's age to complete this topic IPV Vaccines Aged Out No longer eligi ble based on patient's age to complete this topic Meningococcal Vaccine Aged Out No aleks alissa eligible based on patient's age to complete this topic Pneumococcal Vaccine: Pediatrics (0 to 5 Years) and At-Risk Patients (6 to 49) Years) Aged Out No longer eligible b ased on patient's age to complete this topic RSV under 20 months Aged Out No longe r eligible based on patient's age to complete this topic Rotavirus Vaccines Aged Out No longer eligible based on patient's age to complete this topic Procedures Procedure Name Priority Date/Time Associated Diagnosis Comments CBC WITH AUTO DIFFERENTIAL Routine 06/06/2024 9:56 AM EDT Dizziness POCT RAPID COVID ANTIGEN Routine 06/06/2024 9:34 AM EDT Dizziness POCT INFLUENZA A (ID NOW RAPID MOLECULAR) Routine 06/06/2024 9:33 AM EDT Dizziness POCT INFLUENZA B (ID NOW RAPID MOLECULAR) Routine 06/06/2024 9:32 AM EDT Dizziness POCT GLUCOSE Routine 06/06/2024 9:32 AM EDT Dizziness HEMOGLOBIN A1C Routine 07/07/2023 11:49 AM EDT Class 2 obesity due to excess calories without serious comorbidity with body mass index (BMI) of 38.0 to 38.9 in adult LIPID PANEL, STANDARD Routine 07/07/2023 11:49 AM EDT Class 2 obesity due to excess calories without serious comorbidity with body mass index (BMI) of 38.0 to 38.9 in adult ZZZ HISTORICAL HEPATITIS C AB W/REFL TO HCV RNA, QN, PCR Routine 01/07/2021 11:27 AM EDT HIV 1/2 ANTIGEN/ANTIBODY, FOURTH GENERATION W/RFL Routine 01/07/2021 11:27 AM EDT from Last 3 Months or Most Recently Relevant to Health Maintenance Results * (ABNORMAL) CBC auto differential (06/06/2024 9:56 AM EDT) White Blood Count 11.5(H) 4.8 - 10.8 X10*3/uL [facility] Red Blood Count 4.50 4.20 - 5.50 X10*6/uL [facility] Hemoglobin 13.0 12.0 - 16.0 g/dl [facility] Hematocrit 40.4 37.0 - 47.0 % [facility] Mean Corpuscular Volume 89.8 80.0 - 98.0 fL [facility] Mean Corpuscular Hemoglobin 28.9 27.0 - 33.0 pg [facility] Mean Corpuscular HGB Conc 32.2 31.0 - 35.0 g/dl [facility] Red Cell Distribution Width 13.2 11.0 - 16.0 % [facility] Platelet Count 311 160 - 400 X10*3/uL [facility] Mean Platelet Volume 9.9 9.4 - 12.3 fL [facility] Neutrophils Percent Auto 66.4 45 - 73 % [facility] Imm Gran Pct Auto 0.7(H) 0.0 - 0.4 % [facility] Lymphocytes Percent Auto 25.8 20 - 40 % [facility] Monocytes Percent Auto 5.4 2 - 11 % [facility] Eosinophils Percent Auto 1.4 0 - 4 % [facility] Basophils Percent Auto 0.3 0 - 2 % [facility] NRBC Pct Auto 0.0 0.0 - 0.2 /100WBC [facility] Neutrophils Absolute Auto 7.7 2.0 - 8.3 x10*3/uL [facility] Imm Gran Abs Auto 0.08(H) 0.00 - 0.03 X10*3/uL [facility] Lymphocytes Absolute Auto 3.0 1.2 - 4.9 X10*3/uL [facility] Monocytes Absolute Auto 0.6 0.1 - 1.2 X10*3/uL [facility] Eosinophils Absolute Auto 0.2 0.0 - 0.4 X10*3/uL [facility] Basophils Absolute Auto 0.0 0.0 - 0.2 X10*3/uL [facility] NRBC Abs Auto 0.000 0.0 - 0.012 X10*3/uL [facility] Blood Venous blood specimen / Unknown 06/06/2024 9:56 AM EDT 06/06/2024 11:35 AM EDT us Ang Orta MD LAB BLOOD ORDERABLES Final Resul t [facility] [address] [place] [phone] * POCT Rapid Covid-19 BinaxNOW (06/06/2024 9:34 AM EDT) Rapid COVID Ag Negative Nares 06/06/2024 9:34 AM EDT us Ang Orta MD POINT OF CARE TEST ENTER/EDIT OR DERABLES Final Result * POCT Rapid Influenza A GOVEA ID NOW (06/06/2024 9:33 AM EDT) Influenza A Negative Negative, Indeterminate [facility] Swab 06/06/2024 9:33 AM EDT us Ang Orta MD POINT OF CARE TEST ENTER/EDIT OR DERABLES Final Result Performing Organization Address [facility]/ZIP Co de Phone Number [facility] [address] [place] [phone] * POCT Rapid Influenza B GOVEA ID NOW (06/06/2024 9:32 AM EDT) [facility] Influenza B Negative Negative, Indeterminate [facility] Swab 06/06/2024 9:32 AM EDT us Ang Orta MD POINT OF CARE TEST ENTER/EDIT OR DERABLES Final Result Performing Organization Address [facility]/ZIP Co de Phone Number [facility] [address] [place] [phone] * POCT Glucose (06/06/2024 9:32 AM EDT) [facility] Glucose Blood, POC 109 60 - 200 mg/dL Blood Capillary blood specimen / Unknown 06/06/2024 9:32 AM EDT us Ang Orta MD POINT OF CARE TEST ENTER/EDIT OR DERABLES Final Result * Hemoglobin A1c (07/07/2023 11:49 AM EDT) [facility] Hemoglobin A1c 5.7 <6.0 % [facility] Comment:Hemoglobin A1C Refer ence Range Adults: 4.8 - 6.0 % Non diabetic: < 6.0 % Goal: < 7.0 %Additional Action Suggested: > 8.0 %Note: Hemoglobin A1c results are invalid for patients with abnormal amounts of HbF. Blood transfusions may impact the HbA1c concentration in the patient sample. Estimated Average Glucose 117 mg/dL [facility] Comment:eAG = Estimated ave rage glucose which is %A1C expressed asaverage glucose, using the formula of the A9C-QwywxznGggaxyc Glucose study (ADAG), Diabetes Care, Vol.31,#8,Oct. 2007 Blood Venous blood specimen / Unknown 07/07/2023 11:49 AM EDT 07/07/2023 2:43 PM EDT Joel Reyes MD LAB BLOOD ORDERABL ES Final Result [facility] [address] [place] [phone] * (ABNORMAL) Lipid Panel, Standard (07/07/2023 11:49 AM EDT) Triglycerides 113 <150 mg/dL [facility] Comment:Desirable Triglyceri de: less than 150 mg/dLBorderline High Triglyceride 150-199 mg/dLHigh Triglyceride: 200-499 mg/dLVery High Triglyceride: greater than or equal to 5OO mg/dL Cholesterol 225(H) <200 mg/dL [facility] Comment:Desirable Cholestero l: less than 200 mg/dLBorderline High Cholesterol: 200-239 mg/dLHigh Cholesterol: greater than 239 mg/dL LDL Cholesterol Calculated 137(H) <100 mg/dL [facility] Comment:Desirable LDL: less than 100 mg/dLNear Optimal/Above Optimal LDL: 110- 129 mg/dLBorderline High LDL: 130-159 mg/dLHigh LDL: 160-189 mg/dLVery High LDL: greater than or equal to 190 mg/dL HDL Cholesterol 66 >40 mg/dL [facility] Comment:Desirable HDL: great er than 40 mg/dL Note: This HDL assay may give artificially low results in patients with liver disease. Blood Venous blood specimen / Unknown 07/07/2023 11:49 AM EDT 07/07/2023 2:43 PM EDT us Joel Reyes MD LAB BLOOD ORDERABL ES Final Result Performing Organization Address City/[facility]/ZIP Co de Phone Number [facility] [address] [place] [phone] * HEPATITIS C AB W/REFL TO HCV RNA, QN, PCR (01/07/2021 11:27 AM EDT) HEPATITIS C ANTIBODY NON-REACT FABRICE NON-REACT FABRICE [facility] INDEX 0.58 <1.00 [facility] Comment: ?? HCV antibody was non-reactive. There is no laboratory ?? evidence of HCV infection. ?? In most cases, no further action is required. However, if recent HCV exposure is suspected, a test for HCV RNA (test code 87585) is suggested. ?? For additional information please refer to http://education.[employer]/faq/GQH14m9 (This link is being provided for informational/ educational purposes only.) ?? 01/07/2021 11:2 7 AM EDT us Kelly Boo MD HISTORICAL/NON ORDERABLE LABS Final Result Performing Organization Address City/[facility] Co de Phone Number [facility] [address] * HIV 1/2 ANTIGEN/ANTIBODY,FOURTH GENERATION W/RFL (01/07/2021 11:27 AM EDT) HIV-1/2 ANTIGEN AND ANTIBODIES, 4TH GENERATION W/ REFLEX NON-REACT FABRICE NON-REACT FABRICE [facility] Comment: HIV-1 antigen and HIV-1/HIV-2 antibodies were not detected. There is no laboratory evidence of HIV infection. ?? PLEASE NOTE: This information has been disclosed to you from records whose confidentiality may be protected by state law. ??If your state requires such protection, then the state law prohibits you from making any further disclosure of the information without the specific written consent of the person to whom it pertains, or as otherwise permitted by law. A general authorization for the release of medical or other information is NOT sufficient for this purpose. ? For additional information please refer to http://education.[employer]/faq/YCQ121 (This link is being provided for informational/ educational purposes only.) ? The performance of this assay has not been clinically validated in patients less than 2 years old. ?? 01/07/2021 11:2 7 AM EDT us Kelly Boo MD LAB BLOOD ORDERABLES Final Re sult [facility] [address] from Last 3 Months or Most Recently Relevant to Health Maintenance Insurance [address] [place] [address] [facility] [address] [place] [id number] [place] [address] [id number] [place], [place] Care Teams Kettle Operator Relationship Specialty Start Date End Date Joel Ji MD [address] [place] [phone] PCP - General Internal Medicine 06/29/23
--- OUTSIDE RECORDS SUMMARY | 2024-06-06 12:08 | XMS_ITS | Encounter Summary ---
Author Organization [employer] Address [address] [place] [address] [address] [place] [address] Care Team Providers Care Sister Superior Name Role Phone Joel Ji MD Primary Care Prov ider Reason for Visit * Reason Onset Date Comments new MRI order 07/12/2023 Encounter Details Date Type Department Care Team (Special [facility] Contact Info) Description 07/12/2023 Telephone [facility] [address] [place], [place] [phone] Joel Ji MD [address] [place] [phone] new MRI order Social History Tobacco Use Types Packs/Day Years [...] enough money to get more: Never True 04/ 10/2023 Transportation Answer Date Recorded In the [...] encounter Miscellaneous Notes * Telephone Encounter - Janet Richardson - 07/12/2023 11:58 AM EDT Tc from pt calling to inform MRI referral that was sent to [facility] was unable to be completed , pt states the machine is to small and would like to be referral to a different location with a bigger machine . Please call pt to clarify . documented in this encounter Plan of Treatment Not on file documented as of this encounter Visit Diagnoses Not on filedocumented in this encounter Additional Health Concerns Assessment Noted Time PHQ-9 Depression Total Score: 15 024 11:14 AM EDT documented as of this encounter Care Teams Sister Superior Relationship Specialty Start Date End Date Joel Ji MD [address] [place] [phone] PCP - General Internal Medicine 06/29/23 documented as of this encounter
[2024-06-06 12:25] LABS: Anion Gap 10 (12-20); Blood Urea Nitrogen 13 mg/dL (9-16); Calcium 8.9 mg/dL (8.4-10.2); Carbon Dioxide 22 mmol/L (22-29); Chloride 110 mmol/L (96-108); Estimated Glomerular Filt Rate > 60; Glucose Random 104 mg/dL (60-115); Potassium 4.4 mmol/L (3.3-5.1); Sodium 138 mmol/L (135-145)
[2024-06-06 12:31] LABS: TSH reflex Free T4 1.04 uIU/mL (0.32-4.0); Vitamin D 25-OH Total 16.1 ng/mL (>30)
== END 2024-06-06 09:55 | disposition home or self-care (01) ==
LOC: HO.HHCL 09:54
PROVIDERS: Visit Provider Family Medicine
DX: R42 Dizziness and giddiness (principal)
CPT/HCPCS: 36415; 80048; 82306; 84443; 85025